=== PATIENT | male | born 1960 | race Caucasian/White ===

== ENCOUNTER 2021-04-11 08:09 | Outpatient (CLI) | payer OTHER, SELFPAY ==
[2021-04-11 08:38] LABS: Hemoglobin 15.8 g/dL (14.0-18.0)
[2021-04-11 08:50] LABS: Albumin Level 4.5 g/dL (3.5-5.1); Estimated Glomerular Filt Rate > 60; Glucose 120 mg/dL (75-110)
[2021-04-11 08:52] LABS: Urine Cotinine NEGATIVE
--- NOTE | 2021-04-11 08:54 | ECG_ITS ---
Measurements Intervals [place] Rate: 48 P: 8 DE: 161 QRS: -2 QRSD: 97 T: 16 QT: 422 QTc: 378 Interpretive Statements SINUS BRADYCARDIA INCOMPLETE RIGHT BUNDLE BRANCH BLOCK CONSIDER INFERIOR INFARCT, AGE INDETERMINATE ABNORMAL ECG Electronically Signed On 04-11-2021 10:05:52 CDT by Sher Desai D.O.
== END 2021-04-11 08:10 | disposition home or self-care (01) ==
PROVIDERS: Visit Provider Orthopaedic Surgery
DX: M17.11 Unilateral primary osteoarthritis, right knee (principal); Z01.818 Encounter for other preprocedural examination; I45.10 Unspecified right bundle-branch block
CPT/HCPCS: 80307; 82040; 82565; 82947; 83036; 85014; 85018; 93005

== ENCOUNTER 2021-05-28 12:04 | Outpatient (CLI) | payer OTHER, SELFPAY ==
[2021-05-28 14:03] LABS: Basophils Absolute Auto 0.1 K/mm3 (0.0-0.1); Basophils Percent Auto 0.7 % (0.2-1.2); Eosinophils Absolute Auto 0.3 K/mm3 (0-0.3); Eosinophils Percent Auto 2.6 % (0-4.4); Hematocrit 47.1 % (42.0-52.0); Hemoglobin 15.7 g/dL (14.0-18.0); Immature Granulocyte Absolute 0.03 K/mm3 (0.00-0.031); Immature Granulocyte Percent A 0.3 % (0-0.5); Lymphocytes Absolute Auto 3.84 K/mm3 (0.9-3.2); Lymphocytes Percent Auto 39.7 % (18.3-44.2); Mean Corpuscular HGB Conc 33.3 g/dl (32-36); Mean Corpuscular Hemoglobin 29.9 pg (26-34); Mean Corpuscular Volume 89.7 fl (80-100); Mean Platelet Volume 10.8 fl (7.4-10.4); Monocytes Absolute Auto 0.7 K/mm3 (0.1-0.6); Monocytes Percent Auto 7.3 % (2.6-8.5); Neutrophils Absolute Auto 4.8 K/mm3 (1.3-6.7); Neutrophils Percent Auto 49.4 % (45.5-73.1); Platelet Count Result 247 k/mm3 (150-375); Red Blood Count 5.25 M/mm3 (4.6-6.20); Red Cell Distribution Width 13.2 % (11.5-14.5); White Blood Count 9.7 K/mm3 (4.5-10.0)
[2021-05-28 14:14] LABS: Albumin Level 4.3 g/dL (3.5-5.1); Estimated Glomerular Filt Rate > 60; Glucose 178 mg/dL (75-110)
[2021-05-28 14:15] LABS: Urine Cotinine NEGATIVE
[2021-05-28 15:01] LABS: Hemoglobin A1C 6.2 % (<5.7)
== END 2021-05-28 12:05 | disposition home or self-care (01) ==
LOC: ANHSURGERY 12:06
PROVIDERS: Visit Provider Orthopaedic Surgery
DX: M17.11 Unilateral primary osteoarthritis, right knee (principal); Z01.818 Encounter for other preprocedural examination
CPT/HCPCS: 80307; 82040; 82565; 82947; 83036; 85025; 87081

== ENCOUNTER 2021-06-12 01:22 | Day surgery (SDC) | payer OTHER, SELFPAY ==
[2021-05-28 12:33] VITALS: BP 126/64; PULSE 57; RESP 16; TEMP 36.7; O2SAT 98; BMI 30.1
[2021-06-12] VITALS (10 sets, daily range): BP systolic 120–146; BP diastolic 58–97; PULSE 55–68; RESP 14–20; TEMP 36.4–36.6; O2SAT 94–97
[2021-06-12] MEDS: LACTATED RINGERS 1,000 ML 30 ML IV CONT ×2 (06:45→10:13)
[2021-06-12] MEDS: ACETAMINOPHEN 500 MG TABLET 1000 MG PO (06:45)
--- NOTE | 2021-06-12 06:59 | WPDANESEPPF ---
Anes - Initial Pre Proc Eval Procedure: Operation Date: 06/12/21 07:30 Proposed Procedures p Right Total Knee Arthroplasty - Santo Charles MD Date/Time: 06/12/21 06:59 Surgeon: Santo Charles MD Pre Op Diagnosis: Right knee Primary osteoarthritis Patient Data Age: 60 Gender: M Height: 1.73 m Weight: 89.8 kg Last Vital Signs Temp 36.7 C 05/28/21 12:33 Pulse 57 L 05/28/21 12:33 Resp 16 05/28/21 12:33 BP 126/64 05/28/21 12:33 Pulse Ox 98 05/28/21 12:33 Allergies Allergy/AdvReac Type Severity Reaction Status Date / Time amoxicillin Allergy Severe RASH Verified 05/28/21 09:23 Home Medications Medication Instructions Recorded Confirmed Type gabapentin 400 mg capsule 400 mg PO BID 12/11/20 05/28/21 History metoprolol tartrate 50 mg tablet 50 mg PO BID 12/11/20 05/28/21 History multivitamin 1 tablet PO DAILY 12/11/20 05/28/21 History omega-3 fatty acids 1,000 mg 1,000 mg PO DAILY 12/11/20 05/28/21 History capsule pantoprazole 40 mg tablet,delayed 40 mg PO QAM 12/11/20 05/28/21 History release aspirin 81 mg PO DAILY 05/28/21 05/28/21 History atorvastatin 10 mg tablet 10 mg PO DAILY 05/28/21 05/28/21 History cetirizine 10 mg tablet 10 mg PO DAILY 05/28/21 05/28/21 History polyethylene glycol 3350 [Miralax] 17 g PO DAILY 05/28/21 05/28/21 History psyllium husk [Metamucil] 0.52 g PO DAILY 05/28/21 05/28/21 History tamsulosin 0.4 mg capsule 0.4 mg PO DAILY 05/28/21 05/28/21 History ECG: Date of Service: 04/11/21 Procedure(s): CA 12 lead EKG Accession Number(s): [id number] cc: ~ Measurements Intervals [place] Rate: 48 P: 8 PA: 161 QRS: -2 QRSD: 97 T: 16 QT: 422 QTc: 378 Interpretive Statements SINUS BRADYCARDIA INCOMPLETE RIGHT BUNDLE BRANCH BLOCK CONSIDER INFERIOR INFARCT, AGE INDETERMINATE ABNORMAL ECG Electronically Signed On 04-11-2021 10:05:52 CDT by Sher Desai D.O. Patient hx anesthesia problems: post op nausea/vomiting Family hx anesthesia problems: none [facility] Past Medical History Medical History (Updated 06/12/21 @ 07:01 by Donte Thurman MD) BPH (benign prostatic hyperplasia) Chronic GERD HTN (hypertension) Hyperlipidemia Obesity ALVIN (obstructive sleep apnea) Osteoarthritis Surgical History Surgical History (Updated 06/12/21 @ 07:01 by Donte Thurman MD) H/O aortic valve replacement Social History Social History Smoking status: Never smoker Alcohol intake: current Drinks per week: 1 Substance use: never Living arrangements: with family Additional living arrangements comments: Spiritual care concerns: No Anes - Eval Final PreProcedure Day of Procedure 06/12/21 06:59 Patient weight: obese Heart: regular rate and rhythm Lungs: clear to auscultation and normal air movement Airway: Mallampati scale class II Neurological: alert and oriented Last oral intake: >/= 8 hours ASA classification: III Emergent: no Anesthetic plan: proceed Anesthesia type and monitoring: general LMA Informed Consent: The patient's anesthetic plan and its attendant risks and benefits were discussed with the patient/family/POA. Questions were solicited and answers provided to the satisfaction of the patient/family/POA.
--- NOTE | 2021-06-12 07:04 | WPDANESPNB ---
Anes - Peripheral Nerve Block Date/Time: 06/12/21 07:04 I have discussed with the patient/family/POA the placement of a peripheral nerve block for post-operative pain management, including associated risks, benefits, complications, and side effects. Alternative methods of post-operative analgesia were detailed. Questions were solicited and answers provided to the satisfaction of the patient/family/POA. Time-Out: A pre-procedural Time-Out was completed immediately before starting the procedure and confirmed: Patient Identification, Site, Procedure, Patient Position and the Availability of Requisite Equipment. Clinical Indications: Acute post-operative pain management requested by the operative surgeon. Nerve Block Insertion Note Anes-nerve block: adductor canal right Patient position: supine Skin prep: chlorhexidine Needle: 22 gauge, stimulating, insulated echogenic needle. Needle length: 80 mm Technique: ultrasound Technique comment: in plane Injectate: bupivacaine 0.5% with epi 5 mcg/ml (30cc) Observations: tolerated well Complications: none Procedure start time:: 725 Procedure end time:: 730
--- NOTE | 2021-06-12 07:17 | WPDHPUPDATE1 ---
History and Physical Update Update Date/Time: 06/12/21 07:17 History and Physical has been reviewed, including an updated exam of the patient. There are NO changes in the patient's condition. Risks, benefits, and alternatives have been discussed and questions answered. Patient agrees to proceed with procedure.
[2021-06-12] MEDS: TRANEXAMIC ACID 1,000MG/ISO100 1,000 MG/100 ML BAG 200 MG IVPB (07:18)
--- NOTE | 2021-06-12 07:24 | SUR.PREOP ---
0610-CALL PLACED TO DR. GARRETT'S CELL #-ML. [id number]-SPOKE WITH RAJEEV @ DR. GARRETT'S EXCHANGE. [id number]-SPOKE WITH DR. GARRETT RE: LEFT ANTERIOR THIGH BURN, WILL PROCEED.
[2021-06-12] MEDS: SILVER SULFADIAZINE 1% CR 50 GM JAR (*BKC) 1 APPLIC TOPICAL (07:25)
[2021-06-12] MEDS: ceFAZolin 2 GM/D5W 50 ML 2 GM/50 ML BAG IVPB (07:38)
[2021-06-12] MEDS: TRANEXAMIC ACID 1,000 MG/10 ML AMPUL 1000 MG IV PUSH (09:37)
--- NOTE | 2021-06-12 12:04 | P.OP_ITS ---
Procedure Note - Detailed Date of Procedure 06/12/21 Pre-op Diagnosis Right knee Primary osteoarthritis Post-op Diagnosis same Procedure Performed Right total knee arthroplasty. Surgeon Santo Charles MD Supervisor [employer] Manufacturing Deena Winkler PA-C Anesthesia general and regional ( Subsartorial block) Findings Bone quality was excellent. Mild to moderate medial release was performed. Conservative distal femoral resection at 7 mm taken. PCL quality excellent. Significant effusion and moderate synovitis. Standard femoral rotation and resection. Description of Procedure Physician administrative assistant data entry, Deena Winkler PA-C, required for surgery; including patient positioning, draping, tissue retraction, maintaining instrument position, cement removal, wound closure, and dressing placement. OPERATIVE DETAILS: The patient was given a nerve block preoperatively, and then brought to the operating room. A general anesthetic was administered. The leg was prepped and draped in the usual sterile fashion. The limb was elevated and the tourniquet inflated to 300 mmHg during initial exposure and cementation. A longitudinal incision was created along the medial border of the patella and patellar tendon, and a trivector approach to the knee was performed. A mild medial release was taken. The knee was then flexed. The osteophytes were carefully removed. The intramedullary guide was placed in the femoral canal. The distal femoral resection was then taken with the oscillating saw. The collateral ligaments were carefully protected. The tibia was carefully exposed. The jig was applied, and the proximal tibia was resected according to preoperative plan. The knee was balanced in extension. The anterior cruciate ligament and meniscal remnants were removed. The posterior cruciate ligament was preserved. The patella was measured. Patellar resection was carried out with the oscillating saw. The lug holes drilled. The femur was sized and rotation assessed using a combination of gap balancing, posterior referencing, and the AP axis. The 4 in 1 cutting block was used to finish the femoral cuts after equal gaps were assured. The lug holes were drilled. The osteophytes were carefully removed from the back of the knee. The knee was copiously irrigated with antibiotic solution periodically throughout the procedure. The meniscal remnants were removed. The spacer block was used to confirm equal flexion and extension gaps. Further releases were performed as needed. The tibia was sized and broached. The bony surfaces were prepared for cementing with pulsatile lavage. The real tibial component was cemented into position followed by press fitting the femoral component. Excess cement was carefully removed. The patella component was press-fit. Patellar tracking was carefully assessed. No additional releases were required. The wound was closed with #1 Vycril suture, #2 Quill suture, 0-Quill suture, and 2-0 Quill suture followed by Steri-Strips. A sterile bulky dressing was applied. Meticulous hemostasis was maintained throughout the procedure. There were no complications. The patient was extubated and brought to the recovery room in stable condition after the application of sterile dressing with Jean-Paul bandage. Implants [employer] knee system, low profile cemented tibia size 6, press-fit femoral component size 5 ,and an 11 mm cruciate retaining polyethylene insert. 38mm asymmetric metal backed press-fit patella component. Estimated Blood Loss 300 Drains No Pathology none sent Complications No immediate complications Condition stable Disposition same day
--- NOTE | 2021-06-12 13:50 | SUR.PHASEII ---
Spoke with Dr. Harp, patient ok to go home
[2021-06-12] MEDS: oxyCODONE HCL (*CRX) 5 MG TAB IR PO (13:51)
== END 2021-06-12 13:55 | disposition home or self-care (01) ==
PROVIDERS: Visit Provider Orthopaedic Surgery
PROC: (CPT 27447; principal; 2021-06-12 07:30)
DX: M17.11 Unilateral primary osteoarthritis, right knee (principal); G89.18 Other acute postprocedural pain; I10 Essential (primary) hypertension; E78.5 Hyperlipidemia, unspecified; G47.33 Obstructive sleep apnea (adult) (pediatric); N40.0 Benign prostatic hyperplasia without lower urinary tract symptoms; K21.9 Gastro-esophageal reflux disease without esophagitis; E66.9 Obesity, unspecified; Z68.29 Body mass index [BMI] 29.0-29.9, adult; Z79.82 Long term (current) use of aspirin
CPT/HCPCS: 27447; 64447; 36415; 86850; 86900; 86901; 97110; 97161; A9270; C1713; C1776; J0171; J0690; J1100; J1170; J1885; J2250; J2270; J2405; J2704; J2795; J3010; J7120

== ENCOUNTER 2022-11-24 09:52 | Outpatient (CLI) | payer OTHER, SELFPAY ==
[2022-11-24 10:21] LABS: Hematocrit 48.3 % (42.0-52.0); Hemoglobin 16.4 g/dL (14.0-18.0)
--- NOTE | 2022-11-24 10:22 | ECG_ITS ---
Measurements Intervals [place] Rate: 59 P: 29 ID: 161 QRS: -4 QRSD: 100 T: 53 QT: 408 QTc: 404 Interpretive Statements SINUS BRADYCARDIA INCOMPLETE RIGHT BUNDLE BRANCH BLOCK CONSIDER INFERIOR INFARCT, AGE INDETERMINATE ABNORMAL ECG COMPARED TO ECG 04/11/2021 09:01:57 NO SIGNIFICANT CHANGES Electronically Signed On 11-24-2022 11:08:14 GEOLOGICAL E LOGGER by Sher Desai D.O.
[2022-11-24 10:39] LABS: Albumin Level 4.6 g/dL (3.5-5.1); Estimated Glomerular Filt Rate > 60; Glucose 134 mg/dL (65-110)
[2022-11-24 11:10] LABS: Urine Cotinine NEGATIVE
== END 2022-11-24 09:53 | disposition home or self-care (01) ==
LOC: ANHLAB 09:54
PROVIDERS: Visit Provider Orthopaedic Surgery
DX: K21.9 Gastro-esophageal reflux disease without esophagitis (principal); M17.12 Unilateral primary osteoarthritis, left knee; G47.33 Obstructive sleep apnea (adult) (pediatric); E78.5 Hyperlipidemia, unspecified; I10 Essential (primary) hypertension; R94.31 Abnormal electrocardiogram [ECG] [EKG]; Z95.2 Presence of prosthetic heart valve
CPT/HCPCS: 80307; 82040; 82565; 82947; 83036; 85014; 85018; 93005

== ENCOUNTER 2023-07-16 11:48 | Outpatient (CLI) | payer OTHER, SELFPAY ==
[2023-07-16 12:57] LABS: Basophils Absolute Auto 0.1 K/mm3 (0.0-0.1); Basophils Percent Auto 0.8 % (0.2-1.2); Eosinophils Absolute Auto 0.2 K/mm3 (0-0.3); Eosinophils Percent Auto 2.2 % (0-4.4); Hematocrit 46.8 % (42.0-52.0); Hemoglobin 15.6 g/dL (14.0-18.0); Immature Granulocyte Absolute 0.02 K/mm3 (0.00-0.031); Immature Granulocyte Percent A 0.3 % (0-0.5); Lymphocytes Absolute Auto 2.51 K/mm3 (0.9-3.2); Lymphocytes Percent Auto 31.9 % (18.3-44.2); Mean Corpuscular HGB Conc 33.3 g/dl (32-36); Mean Corpuscular Hemoglobin 30.6 pg (26-34); Mean Corpuscular Volume 91.8 fl (80-100); Mean Platelet Volume 10.7 fl (7.4-10.4); Monocytes Absolute Auto 0.7 K/mm3 (0.1-0.6); Monocytes Percent Auto 9.2 % (2.6-8.5); Neutrophils Absolute Auto 4.4 K/mm3 (1.3-6.7); Neutrophils Percent Auto 55.6 % (45.5-73.1); Platelet Count Result 228 k/mm3 (150-375); Red Cell Distribution Width 12.8 % (11.5-14.5); White Blood Count 7.9 K/mm3 (4.5-10.0)
[2023-07-16 13:05] LABS: Hemoglobin A1C 5.8 % (<5.7)
[2023-07-16 13:14] LABS: Urine Cotinine NEGATIVE
[2023-07-16 13:28] LABS: Albumin Level 4.4 g/dL (3.5-5.1); Estimated Glomerular Filt Rate > 60; Glucose 121 mg/dL (65-110)
== END 2023-07-16 11:49 | disposition home or self-care (01) ==
LOC: ANHSURGERY 11:52
PROVIDERS: Visit Provider Orthopaedic Surgery
DX: M17.12 Unilateral primary osteoarthritis, left knee (principal); Z01.818 Encounter for other preprocedural examination
CPT/HCPCS: 80307; 82040; 82565; 82947; 83036; 85025; 87081

== ENCOUNTER 2023-08-10 03:17 | Day surgery (SDC) | payer OTHER, SELFPAY ==
[2023-07-16 11:35] VITALS: BP 120/72; PULSE 60; RESP 20; TEMP 36.7; O2SAT 99; BMI 28.3
--- NOTE | 2023-07-16 11:35 | PC.NURSE ---
PRE-OP INSTRUCTIONS, PLEASE READ CAREFULLY Report to the Outpatient Waiting Room, entrance under the green pavilion located off [facility], at time _0830_ on date _08/10/23_. Planned Procedure Time: _1030_. PACK A SMALL OVERNIGHT BAG AND LEAVE IN THE CAR ALONG WITH YOUR WALKER Time changes happen often and if your time is changed the preop area will call you the afternoon before. - You and your visitor will be asked to self-screen and do not enter if you have any COVID symptoms. - A mask is optional within the hospital at this time. -VISITING HOURS 8AM-8PM Patients may have clear liquids (water, carbonated beverages, clear teas, apple juice) until 3 hours prior to surgery (0730 AM) with a maximum of 20 ounces. - No food from midnight until time of surgery Take the following medications with a SIP of water the morning of surgery: _NONE_ DO NOT STOP ANY OF YOUR OTHER PRESCRIPTION MEDICATIONS PRIOR TO SURGERY ?EXCEPT THE FOLLOWING Medications to discontinue per DR. GARRETT - _ASPIRIN 7 DAYS PRIOR TO SURGERY, Date to take last dose 08/02/23_ Medications to discontinue per ANESTHESIA - _MULTIVITAMIN, KRILL OIL, 3 DAYS PRIOR TO SURGERY, Date to take last dose 08/06/23_ Please no make-up, nail danish, hairspray, perfume, deodorant, or body powder the day of surgery. No jewelry (including any body piercings) or valuables the day of surgery, leave them at home. Please take a shower or bath the night before, or the morning of, surgery with an antibacterial soap. Wear comfortable, loose fitting clothing. - Jewelry must be removed prior to entering the operating room. Rings and piercings that are not removed may be cut off. - The hospital will not accept responsibility for valuables. - Please leave all valuables, including medications, at home the day of surgery. If you are going home after surgery, a licensed limousine driver must drive you home. - NO public transportation without another adult if you receive anesthesia. - We recommend that an adult stay with you for 24 hours following discharge. - We also recommend that you do not drive, make important decision, drink alcoholic beverages, or take any drugs that were not prescribed by your health care provider for at least 24 hours after your discharge time. Follow any additional instructions given to you from your surgeon. If you or anyone in your household have experienced Covid symptoms in the past week, please notify your surgeon or the nurse liaison at the phone number below for possible testing. Instructions given to _PATIENT_and asked if any additional questions and then verbalized understanding. Patient advised to call surgeon office or pre surgery nurse liaison [phone] if any additional questions.
[2023-08-10] VITALS (12 sets, daily range): BP systolic 99–149; BP diastolic 53–80; PULSE 53–68; RESP 12–14; TEMP 36.1–36.5; O2SAT 94–100
--- NOTE | ~2023-08-10 | XR_ITS ---
Left Knee Technique: Portable AP and crosstable lateral views Clinical History: Status post TKR Findings: Patient is status post total knee replacement. Orthopedic hardware alignment appears anatom ic. No hardware complication is evident. Subcutaneous emphysema and swelling is likely postoperative in nature. No acute osseous fracture is seen. Impression: Status post total knee replacement, without evidence of hardware complication. Reviewed, dictated and finalized at location . Impression: Status post total knee replacement, without evidence of hardware complication.
--- NOTE | 2023-08-10 07:28 | WPDHPUPDATE1 ---
History and Physical Update Update Date/Time: 08/10/23 07:28 History and Physical has been reviewed, including an updated exam of the patient. There are NO changes in the patient's condition. Risks, benefits, and alternatives have been discussed and questions answered. Patient agrees to proceed with procedure.
--- NOTE | 2023-08-10 09:26 | WPDANESEPPF ---
Anes - Initial Pre Proc Eval Procedure: Operation Date: 08/10/23 10:30 Proposed Procedures p Left Total Knee Arthroplasty - Santo Charles MD Date/Time: 08/10/23 09:26 Surgeon: Santo Charles MD Pre Op Diagnosis: primary OA left knee Patient Data Age: 62 Gender: M Height: 1.73 m Weight: 84.5 kg Last Vital Signs Temp 36.7 C 07/16/23 11:35 Pulse 60 07/16/23 11:35 Resp 20 07/16/23 11:35 BP 120/72 07/16/23 11:35 Pulse Ox 99 07/16/23 11:35 O2 Del Method Room Air 07/16/23 11:35 Allergies Allergy/AdvReac Type Severity Reaction Status Date / Time amoxicillin Allergy Severe RASH Verified 07/16/23 12:01 Home Medications Medication Instructions Recorded Confirmed Type multivitamin 1 tablet PO DAILY 12/11/20 07/16/23 History pantoprazole 40 mg tablet,delayed 40 mg PO QAM 12/11/20 07/16/23 History release aspirin 81 mg capsule,delayed 81 mg PO DAILY 05/28/21 07/16/23 History release atorvastatin 10 mg tablet 10 mg PO DAILY 05/28/21 07/16/23 History polyethylene glycol 3350 17 17 g PO DAILY 05/28/21 07/16/23 History gram/dose oral powder (Miralax) psyllium husk 0.52 gram capsule 0.52 g PO DAILY 05/28/21 07/16/23 History (Metamucil) tamsulosin 0.4 mg capsule 0.4 mg PO DAILY 05/28/21 07/16/23 History fexofenadine 180 mg tablet 180 mg PO DAILY 07/16/23 07/16/23 History (Raquel Allergy) fluticasone propionate 50 1 spray intranasal DAILY 07/16/23 07/16/23 History mcg/actuation nasal spray,suspension (Flonase Allergy Relief) galcanezumab-gnlm 120 mg/mL 120 mg subcut MONTHLY 07/16/23 07/16/23 History subcutaneous pen injector (Emgality Pen) glucosamine sulfate 2KCl 1,000 mg 1,000 mg PO BID 07/16/23 07/16/23 History tablet (Glucosamine Relief) krill oil 500 mg capsule 1 mg PO DAILY 07/16/23 07/16/23 History losartan 50 mg tablet 50 mg PO DAILY 07/16/23 07/16/23 History methenam 118 mg-m.blue 10 1 tablet PO QID PRN PAINFUL 07/16/23 07/16/23 History mg-s.phos 40.8 mg-p.salic 36 URINATION mg-hyos capsule (Uro-MP) metoprolol succinate 25 mg 25 mg PO DAILY 07/16/23 07/16/23 History tablet,extended release 24 hr tadalafil 20 mg tablet 20 mg PO DAILY PRN Sexual Activity 07/16/23 07/16/23 History venlafaxine 37.5 mg tablet 37.5 mg PO TID PRN Migraine 07/16/23 07/16/23 History Headache aspirin 81 mg tablet,delayed 81 mg PO BID 14 days #28 tabs 08/10/23 Rx release meloxicam 15 mg tablet 15 mg PO DAILY #30 tabs 08/10/23 Rx oxycodone-acetaminophen 5 mg-325 1 - 2 tablet PO Q4-6H PRN pain #30 08/10/23 Rx mg tablet tabs prednisone 5 mg tablet 5 mg PO DAILY 3 weeks #21 tabs 08/10/23 Rx Patient hx anesthesia problems: none Family hx anesthesia problems: none Results Review: All pre-operative results and documents have been reviewed as part of the pre-operative evaluation. [facility] Past Medical History Medical History BPH (benign prostatic hyperplasia) Chronic GERD HTN (hypertension) Hyperlipidemia Obesity ALVIN (obstructive sleep apnea) Osteoarthritis Surgical History Surgical History H/O aortic valve replacement History of total right knee replacement (~06/12/21) Social History Social History Smoking status: Never smoker Second hand tobacco smoke exposure: No Additional smoking assessment comments: PT DENIES ALL FORMS OF TOBACCO USE Alcohol intake: current Drinks per week: 1 Substance use: never Substance use type: does not use Lack of Transportation: No Lack of Food: Never True Current Housing: I Have Housing Concerned About Future Housing: No Difficulty Paying Gas/Electric Bills: No Difficulty Paying for Meds: No Currently Unemployed: No Education: Trade/Vocational Certificate Difficulty w/ Childcare or Family Care: No Living arran
[2023-08-10] MEDS: ACETAMINOPHEN 500 MG TABLET 1000 MG PO (09:45)
[2023-08-10] MEDS: LACTATED RINGERS 1,000 ML 30 ML IV CONT ×2 (09:45→12:40)
[2023-08-10] MEDS: TRANEXAMIC ACID 1,000MG/ISO100 1,000 MG/100 ML BAG 200 MG IVPB (09:45)
--- NOTE | 2023-08-10 10:37 | WPDANESPNB ---
Anes - Peripheral Nerve Block Date/Time: 08/10/23 10:37 I have discussed with the patient/family/POA the placement of a peripheral nerve block for post-operative pain management, including associated risks, benefits, complications, and side effects. Alternative methods of post-operative analgesia were detailed. Questions were solicited and answers provided to the satisfaction of the patient/family/POA. Time-Out: A pre-procedural Time-Out was completed immediately before starting the procedure and confirmed: Patient Identification, Site, Procedure, Patient Position and the Availability of Requisite Equipment. Clinical Indications: Acute post-operative pain management requested by the operative surgeon. Nerve Block Insertion Note Anes-nerve block: femoral left Patient position: supine Skin prep: chlorhexidine Needle: 22 gauge, stimulating, insulated echogenic needle. Needle length: 50 mm Technique: nerve stimulation lost at (mA) (0.35) Injectate: bupivacaine 0.5% with epi 5 mcg/ml (30cc no epi) Observations: tolerated well Complications: none Procedure start time:: 1031 Procedure end time:: 1033
[2023-08-10] MEDS: ceFAZolin 2 GM/D5W 50 ML 2 GM/50 ML BAG IVPB (10:47)
[2023-08-10] MEDS: GENTAMICIN BONE CEMENT REFOBACIN 1 EACH TOPICAL (11:51)
--- NOTE | 2023-08-10 13:16 | P.OP_ITS ---
Procedure Note - Detailed Date of Procedure 08/10/23 Pre-op Diagnosis primary OA left knee Post-op Diagnosis Same Procedure Performed Total knee arthroplasty, left. Surgeon Santo Charles MD Innersole Maker Deena Carrillo PA-C Anesthesia General and Regional (subsartorial block) Findings Large medial release required due to preoperative varus thrust. Standard bone resections. Description of Procedure The patient was brought to the operating room. A general anesthetic was administered. The leg was prepped and draped in the usual sterile fashion. The limb was elevated and the tourniquet inflated to 300 mmHg during initial exposu re, and cementation. A longitudinal incision was created along the medial border of the patella and patellar tendon, and a trivector approach to the knee was performed. A large medial release was taken. The knee was then flexed. The osteophytes were carefully removed. The intramedullary guide was placed in the femoral canal. The distal femoral resection was then taken with the oscillating saw. The collateral ligaments were carefully protected. The tibia was carefully exposed. The jig was applied, and the proximal tibia was resected according to preoperative plan. The knee was balanced in extension. Appropriate releases were taken where needed. The anterior cruciate ligament and meniscal remnants were removed. The posterior cruciate ligament was preserved. The patella was measured. Patellar resection was carried out with the oscillating saw. The lug holes drilled. The femur was sized and rotation assessed using a combination of gap balancing, posterior referencing, and the AP axis. The 4 in 1 cutting block was used to finish the femoral cuts after equal gaps were assured. The osteophytes were carefully removed from the back of the knee. The knee was copiously irrigated with antibiotic solution periodically throughout the procedure. The meniscal remnants were removed. The spacer block was used to confirm equal flexion and extension gaps. Needle release of the MCL was r equired. The tibia was sized and broached. The bony surfaces were prepared for cementing with pulsatile lavage. The real tibia was cemented into position. The femur was press-fit. The patella was press-fit. Excess cement was carefully removed. Patellar tracking was carefully assessed. [No additional releases were required.][ Dilute sterile Betadine soak performed for three minutes.] Copious irrigation then performed. The wound was closed with #1 Vicryl suture, #2, 2-0, and 3-0 barbed suture, followed by Steri-Strips. A sterile bulky dressing was applied. Meticulous hemostasis was maintained throughout the procedure, and the bipolar cautery device was used. The pain relieving mixture was injected into the periarticular tissues during the procedure. There were no complications. The patient was extubated and brought to the recovery room in stable condition after the application of sterile dressing with Jean-Paul bandage. Implants [employer] Triathlon knee system, low profile cemented tibia size 5, press-fit cruciate retaining femoral component size 5 ,and an 11 mm cruciate retaining polyethylene insert. 35mm asymmetric metal backed tritanium patella component. Estimated Blood Loss -100.0 Drains No Packing No Pathology None sent Complications No immediate complications Condition Stable Disposition PACU [facility] Billing Surgery - Charge Forward: Surgery Billing
[2023-08-10] MEDS: fentaNYL CITRATE INJ (*CRX) 100 MCG/2 ML VIAL 25 MCG IV PUSH ×2 (13:44→13:53)
--- NOTE | 2023-08-10 14:38 | SUR.PHASEII ---
RN placed an order with dietary about 1430.
[2023-08-10] MEDS: oxyCODONE HCL (*CRX) 5 MG TAB IR PO (14:47)
[2023-08-10] MEDS: ONDANSETRON INJ 4 MG/2 ML VIAL IV PUSH (15:28)
--- NOTE | 2023-08-10 16:08 | SUR.PHASEI ---
RN contacted Dr. Charles and told him what PT said. He said if the patient still wanted to go home that was fine to just put him in a knee immobilizer.
== END 2023-08-10 16:50 | disposition home or self-care (01) ==
PROVIDERS: Visit Provider Orthopaedic Surgery
PROC: (CPT 27447; principal; 2023-08-10 10:30)
DX: M17.12 Unilateral primary osteoarthritis, left knee (principal); G89.18 Other acute postprocedural pain; I10 Essential (primary) hypertension; E78.5 Hyperlipidemia, unspecified; G47.33 Obstructive sleep apnea (adult) (pediatric); K21.9 Gastro-esophageal reflux disease without esophagitis; N40.0 Benign prostatic hyperplasia without lower urinary tract symptoms; Z79.82 Long term (current) use of aspirin; Z79.891 Long term (current) use of opiate analgesic
CPT/HCPCS: 27447; 64447; 36415; 73560; 86850; 86900; 86901; 97110; 97161; 97165; A9270; C1713; C1776; J0171; J0690; J1100; J1170; J1885; J2250; J2270; J2405; J2704; J2795; J3010; J7120; L1830

== ENCOUNTER 2023-11-03 13:38 | Outpatient (CLI) | payer OTHER, SELFPAY ==
--- NOTE | ~2023-11-03 | XR_ITS ---
Right Shoulder Technique: AP and scapular Y views were obtained. Clinical History: Pain Findings: No fracture or dislocation is seen. Osseous alignment is anatomic. The glenohumeral and acr omioclavicular joint spaces are preserved. Probable small focus of calcific tendinitis of the distal supraspinatus tendon region. Impression: Small focus of calcific tendinitis at the distal supraspinatus tendon region. Reviewed, dictated and finalized at location . LIENT TILE INSTALLER Impression: Small focus of calcific tendinitis at the distal supraspinatus tendon region.
== END 2023-11-03 13:39 | disposition home or self-care (01) ==
PROVIDERS: Visit Provider Orthopaedic Surgery
DX: M75.31 Calcific tendinitis of right shoulder (principal)
CPT/HCPCS: 73030

== ENCOUNTER 2024-08-09 09:41 | Outpatient (CLI) | payer MEDICARE, OTHER, SELFPAY ==
--- NOTE | ~2024-08-09 | XR_ITS ---
Left Knee Technique: AP, lateral, and sunrise views were obtained. Clinical History: Arthroplasty follow-up COMPARISON: 823 Findings: No fracture or dislocation is seen. Left knee arthroplasty in place. Soft tissues are unrem arkable. No joint effusion is seen. Impression: No acute abnormality. Left knee arthroplasty in place. Reviewed, dictated and finalized at location . Impression: No acute abnormality. Left knee arthroplasty in place.
== END 2024-08-09 09:42 | disposition home or self-care (01) ==
PROVIDERS: Visit Provider Orthopaedic Surgery
DX: Z96.652 Presence of left artificial knee joint (principal)
CPT/HCPCS: 73562

== ENCOUNTER 2025-11-01 13:11 | Outpatient (CLI) | payer MEDICARE, SELFPAY ==
--- NOTE | ~2025-11-01 | MR_ITS ---
EXAMINATION: MRI right shoulder without contrast: DATE: 11/01/2025. INDICATION: Persistent right shoulder pain with diminished range of motion for about a year and half. TECHNIQUE: Oblique coronal, oblique sagittal and axial images of right shoulder as per protocol. COMPARISON: Right shoulder x-ray dated 09/28/2025. FINDINGS: No acute bony lesions at the right shoulder. Degenerative changes at the AC joint impinges on the subacromion space and the supraspinatus tendon to significant degree. Moderate distal supraspinatus tendinitis is noted with tiny partial-thickness tear on the articular side of the supraspinatus. No evidence of full-thickness rotator cuff tear. Small effusion in the subacromion bursa. No evidence of glenoid labral tear. Biceps tendon is intact. IMPRESSION: 1. No acute bony lesions at the right shoulder. 2. Significant degenerative arthritis of AC joint is impinging on the subacromion space. 3. Distal supraspinatus tendinitis. Small partial-thickness tear on the articular side of distal supraspinatus. No full-thickness tear are seen. 4. Small effusion in the subacromion bursa. Reviewed, dictated and finalized at location [facility]. [facility] IMPRESSION: 1. No acute bony lesions at the right shoulder. 2. Significant degenerative arthritis of AC joint is impinging on the subacromi on space. 3. Distal supraspinatus tendinitis. Small partial-thickness tear on the articul ar side of distal supraspinatus. No full-thickness tear are seen. 4. Small effusion in the subacromion bursa.
== END 2025-11-01 13:12 | disposition home or self-care (01) ==
PROVIDERS: Visit Provider Orthopaedic Surgery
DX: M75.121 Complete rotator cuff tear or rupture of right shoulder, not specified as traumatic (principal); M19.011 Primary osteoarthritis, right shoulder
CPT/HCPCS: 73221